=== PATIENT | female | born 1975 | race American Indian/Alaskan Native ===

== ENCOUNTER 2016-12-18 14:13 | Outpatient (CLI) | payer BC ==
[2016-12-18 14:25] LABS: Basophils % (Auto) 0.5 % (0.0-1.8); Eosinophils % (Auto) 0.8 % (0.0-4.3); Hemoglobin 11.9 gm/dl (10.1-14.3); Mean Corpuscular HGB Conc 32 % (30-34); Mean Corpuscular Volume 73 fl (79-97); Platelet Count 302 K/mm3 (140-440); Red Blood Count 5.05 M/mm3 (3.65-5.03); Red Cell Distribution Width 17.2 % (13.2-15.2); White Blood Count 5.4 K/mm3 (4.5-11.0)
[2016-12-18 14:26] LABS: Mean Corpuscular Hemoglobin 24 pg (28-32)
[2016-12-18 14:50] LABS: Alanine Aminotransferase 30 units/L (7-56); Albumin 4.2 g/dL (3.9-5); Albumin/Globulin Ratio 1.2 %; Alkaline Phosphatase 73 units/L (35-129); Anion Gap 18 mmol/L; Bilirubin,Total 0.3 mg/dL (0.1-1.2); Blood Urea Nitrogen 8 mg/dL (7-17); Calcium 9.1 mg/dL (8.4-10.2); Carbon Dioxide 24 mmol/L (22-30); Chloride 101.9 mmol/L (98-107); Cholesterol 137 mg/dL (50-199); Glucose 82 mg/dL (65-100); HDL Cholesterol 42 mg/dL (40-59); LDL Cholesterol,Direct 76 mg/dL (50-130); Sodium 140 mmol/L (137-145); Total Protein 7.7 g/dL (6.3-8.2); Triglycerides 97 mg/dL (2-149)
== END 2016-12-18 14:14 | disposition home or self-care (01) ==
LOC: LABHHL 14:13
PROVIDERS: ATTEND Specialist
DX: Z00.00 Encounter for general adult medical examination without abnormal findings (principal); D50.9 Iron deficiency anemia, unspecified; K30 Functional dyspepsia; E61.8 Deficiency of other specified nutrient elements
CPT/HCPCS: 36415; 80053; 80061; 84443; 85025